=== PATIENT | female | born 1960 | race Caucasian/White ===

== ENCOUNTER 2016-08-10 13:00 | Outpatient (RCR) | payer OTHER ==
--- OUTSIDE RECORDS SUMMARY | 2016-05-14 08:43 | XMS REPORT | Continuity of Care Document ---
Author Author [facility] Organization [facility] Address Unknown Phone Unavailable Care Team Providers Care Drip Pumper Name Role Phone UNKNOWN PCP Unavailable Insurance Providers Payer Name Policy Number Subscriber Name Relationship [facility] [id number] Celina Sandhu Faiban 01 Self Pay Fin Associate Professor Of Medicine Review [id number] Tina Sandhu 18 Self / Same As Patient Advance Directives Directive Response Recorded Date/Time Advance Directives Yes 04/22/16 4:26pm Health Care Power of Tunnel Elastic Operator Zigzag No 04/22/16 4:26pm Resuscitation Status Full Code 04/22/16 4:26pm Chief Complaint and Reason for Visit Chief Complaint REHAB Reason for Visit Diabetic ulcer of both feet associated with type 2 diabetes mellitus Problems Active Problems Medical Problem Onset Date Status Diabetic ulcer of both feet associated with type 2 diabetes mellitus Unknown Acute Medications Current Home Medications Medication Dose Units Route Directions Days/Qty Instructions Start Date Hydrocodone/Acetaminophen 1 Each 1 Ea Oral Every 4HRS as needed for Pain 60 05/07/16 Tramadol Hcl 50 Mg 100 Mg Oral Twice A Day 60 05/07/16 Cyclobenzaprine Hcl 10 Mg 5 Mg Oral Three Times A Day as needed for Muscle Spasms 60 05/08/16 Ferrous Sulfate 325 Mg 325 Mg Oral Daily@0700 100 05/08/16 Atorvastatin Calcium 40 Mg 40 Mg Oral Bedtime 30 05/08/16 Metoprolol Tartrate 50 Mg 50 Mg Oral Twice A Day 60 05/08/16 Spironolactone 25 Mg 25 Mg Oral Daily 30 05/08/16 Acetaminophen 325 Mg 650 Mg Oral Every 6 Hours as needed for Mild Pain 100 05/08/16 Sodium Hypochlorite 473 Ml 5 Ml Topically Twice A Day 1 05/08/16 Magnesium Oxide 400 Mg 400 Mg Oral Three Times A Day 90 05/08/16 Sennosides/Docusate Sodium 1 Each 1 Ea Oral Twice A Day 60 05/08/16 Sucralfate 1 Gm 1 Gm Oral Daily@1600 100 05/08/16 Pantoprazole Sodium 40 Mg 40 Mg Oral Daily@0700 30 05/08/16 Insulin Aspart 100 Unit/1 Ml 21 Unit Subcutaneously With Meals 1 05/08 Insulin Determir 1,000 Units/10 Ml 49 Unit Sub-Q Twice A Day 1 Levothyroxine Sodium 150 Mcg 150 Mcg Oral Daily@0630 1 05/08/16 Miconazole Nitrate 90 Gm 0 Gm Topically Twice A Day as needed for Redness 1 05/08/16 Menthol/Lanolin/Calamine/Znox 71 Gm 0 Gm Topically Twice A Day 1 05/08 Vitamin A & D 60 Gm 0 Gm Topically Twice A Day 1 05/08/16 Vitamin A & D 60 Gm 0 Gm Topically As Directed as needed for Itching And Rash 1 05/08/16 Ascorbic Acid 500 Mg 500 Mg Oral Daily@08 30 05/08/16 Cholecalciferol 5,000 Unit 5,000 Unit Oral Daily 30 05/08/16 Allopurinol 100 Mg 200 Mg Oral Twice Daily After Meals 60 05/08/16 Social History Social History Problem Response Recorded Date/Time Alcohol Use Denies Use 04/22/2016 4:35pm Recreational Drug Use No 04/22/2016 4:35pm Recent Foreign Travel No 04/22/2016 4:54pm Recent Infectious Disease Exposure No 04/22/2016 4:54pm Hospitalization with Isolation Contact 05/09/2016 7:03am Smoking Status Never a Smoker 04/22/2016 4:49pm Recent Hopitalizations Y MRSA OF TOE 04/22/2016 4:35pm Hospitalization with Isolation Contact 05/09/2016 7:03am Query Response Start Date Stop Date Smoking Status Never a Smoker Hospital Discharge Instructions No hospital discharge instructions. Plan of Care Discharge Date 05/09/16 12:30am Disposition 09 ADMITTED INPATIENT Instructions/Education Provided DIABETES CHF Home Safety (GEN) Fall Prevention for Older Adults (GEN) Forms Provided Rehab Team Conference Summary Prescriptions See Medication Section Referrals (Unspecified) - Reason(s) for Referral: CALL DR. 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 [phone] TACOS ESPINOZA DO (Unspecified) - Address: [address] [place], [place] [address]ANGEL MURRAY [id number] Reason(s) for Referral: CALL & MAKE FOLLOW-UP APPT IN OFFICE PER DAUGHTER'S SCHEDULE (Unspecified) - Reason(s) for Referral: PT/OT/RN SERVICES Care Plan and Goals Functional Status Query Response Date Recorded Patient Orientation Person Place May 07, 2016 4:01pm Patient Orientation Person Place Time Situation May 09, 2016 7:02am Comprehension Ability Understands Concepts May 08, 2016 8:00pm Allergies, Adverse Reactions, Alerts No known allergies. Immunizations Name Given Type FLU TRIvalent 5 years - Adult 04/23/16 Administered Vital Signs Acute Vital Signs Vital Response Date/Time Temperature (Fahrenheit) 98.1 degrees F (97.6 - 99.5) 05/08/2016 6:22pm Temperature (Calculated Celsius) 36.90805 degrees C (36.4 - 37.5) 05/08/2016 6:22pm Temperature Source Tympanic 05/08/2016 6:22pm Pulse Rate (adult) 81 bpm (60 - 90) 05/08/2016 6:22pm Respiratory Rate 20 bpm (12 - 24) 05/08/2016 6:22pm O2 Sat by Pulse Oximetry 95 % (88 - 100) 05/08/2016 6:22pm Blood Pressure 126/72 mm Hg 05/08/2016 6:22pm Blood Pressure Mean 90 mm Hg 05/08/2016 6:22pm Pain Numeric Pain Scale 4 05/08/2016 10:10pm Pain Numeric Pain Scale 4 05/08/2016 10:10pm Height (Feet) 6 feet 04/22/2016 4:35pm Height (Inches) 0.00 inches 04/22/2016 4:35pm Height (Calculated Centimeters) 182.388540 cm 04/22/2016 4:35pm Weight (Pounds) 435 pounds 05/08/2016 6:00am Weight (Ounces) 6.8 oz 05/08/2016 6:00am Weight (Calculated Grams) 116341.460 gm 05/08/2016 6:00am Weight (Calculated Kilograms) 197.999416 kilograms 05/08/2016 6:00am Calculated BMI 54.8 04/22/2016 4:35pm Results Laboratory Results Test Name Result Units Flags Reference Collection Date/Time Result Date/ Time Comments White Blood Count 5.3 10^3/uL 4.3-11.0 05/04/2016 5:15am 05/04/2016 6: 23am Red Blood Count 3.17 10^6/uL L 4.35-5.85 05/04/2016 5:1505/04/2016 6: 23am Hemoglobin 9.3 G/DL L 11.5-16.0 05/04/2016 5:1505/04/2016 6:23am Hematocrit 31 % L 35-52 05/04/2016 5:1505/04/2016 6:23am Mean Corpuscular Volume 98 FL 80-99 05/04/2016 5:1505/04/2016 6: 23am Mean Corpuscular Hemoglobin 29 PG 25-34 05/04/2016 5:15am 05/04/2016 6: 23am Mean Corpuscular Hemoglobin Concent 30 G/DL L 32-36 05/04/2016 5:1504/2016 6:23am Red Cell Distribution Width 17.3 % H 10.0-14.5 05/04/2016 5:15am 2015 6:23am Platelet Count 317 10^3/uL 130-400 05/04/2016 5:15am 05/04/2016 6:23am Mean Platelet Volume 10.2 FL 7.4-10.4 05/04/2016 5:15am 05/04/2016 6: 23am Neutrophils (%) (Auto) 64 % 42-75 04/23/2016 5:38am 04/23/2016 6:14am Lymphocytes (%) (Auto) 21 % 12-44 04/23/2016 5:38am 04/23/2016 6:14am Monocytes (%) (Auto) 11 % 0-12 04/23/2016 5:38am 04/23/2016 6:14am Eosinophils (%) (Auto) 3 % 0-10 04/23/2016 5:38am 04/23/2016 6:14am Basophils (%) (Auto) 1 % 0-10 04/23/2016 5:38am 04/23/2016 6:14am Neutrophils # (Auto) 3.6 X 10^3 1.8-7.8 04/23/2016 5:38am 04/23/2016 6: 14am Lymphocytes # (Auto) 1.2 X 10^3 1.0-4.0 04/23/2016 5:3804/23/2016 6: 14am Monocytes # (Auto) 0.6 X 10^3 0.0-1.0 04/23/2016 5:38am 04/23/2016 6: 14am Eosinophils # (Auto) 0.2 10^3/uL 0.0-0.3 04/23/2016 5:3804/23/2016 6 :14am Basophils # (Auto) 0.1 10^3/uL 0.0-0.1 04/23/2016 5:38am 04/23/2016 6: 14am Urine Color YELLOW 05/08/2016 11:20am 05/08/2016 11:39am Urine Clarity CLEAR 05/08/2016 11:20am 05/08/2016 11:39am Urine pH 5 5-9 05/08/2016 11:20am 05/08/2016 11:39am Urine Specific [place] 1.020 1.016-1.022 05/08/2016 11:20am 2015 11:39am Urine Protein 2+ * NEGATIVE 05/08/2016 11:20am 05/08/2016 11:39am Urine Glucose (UA) NEGATIVE NEGATIVE 05/08/2016 11:20am 05/08/2016 11 :39am Urine RBC (Auto) 2+ * NEGATIVE 05/08/2016 11:20am 05/08/2016 11:39am Urine Ketones NEGATIVE NEGATIVE 05/08/2016 11:20am 05/08/2016 11: 39am Urine Nitrite POSITIVE * NEGATIVE 05/08/2016 11:20am 05/08/2016 11: 39am Urine Bilirubin NEGATIVE NEGATIVE 05/08/2016 11:20am 05/08/2016 11: 39am Urine Urobilinogen 1 MG/DL NORMAL 05/08/2016 11:20am 05/08/2016 11: 39am Urine Leukocyte Esterase NEGATIVE NEGATIVE 05/08/2016 11:20am 2015 11:39am Urine RBC 0-2 /HPF 05/08/2016 11:20am 05/08/2016 11:39am Urine WBC 5-10 /HPF * 05/08/2016 11:20am 05/08/2016 11:39am Urine Bacteria TRACE /HPF 05/08/2016 11:20am 05/08/2016 11:39am Urine Squamous Epithelial Cells 25-50 /HPF * 05/08/2016 11:20am 2015 11:39am Urine Crystals NONE /LPF 05/08/2016 11:20am 05/08/2016 11:39am Urine Casts NONE /LPF 05/08/2016 11:20am 05/08/2016 11:39am Urine Mucus NEGATIVE /LPF 05/08/2016 11:20am 05/08/2016 11:39am Urine Culture Indicated NO 05/08/2016 11:20am 05/08/2016 11:39am Sodium Level 137 MMOL/L 135-145 05/04/2016 5:15am 05/04/2016 6:50am Potassium Level 4.5 MMOL/L 3.6-5.0 05/04/2016 5:15am 05/04/2016 6:50am Chloride Level 106 MMOL/L 98-107 05/04/2016 5:15am 05/04/2016 6:50am Carbon Dioxide Level 18 MMOL/L L 21-32 05/04/2016 5:15am 05/04/2016 6: 50am Anion Gap 13 MMOL/L 5-14 05/04/2016 5:15am 05/04/2016 6:50am Blood Urea Nitrogen 12 MG/DL 7-18 05/04/2016 5:15am 05/04/2016 6:50am Creatinine 1.05 MG/DL 0.60-1.30 05/04/2016 5:15am 05/04/2016 6:50am BUN/Creatinine Ratio 11 05/04/2016 5:15am 05/04/2016 6:50am Estimat Glomerular Filtration Rate 54 05/04/2016 5:15am 05/04/2016 6:50am GFR INTERPRETIVE DATA UNITS FOR ESTIMATED GFR (eGFR): mL/min/1.73 M2 REFERENCE RANGE FOR ESTIMATED GFR (eGFR) eGFR NORMAL eGFR >60 MODERATELY DECREASED eGFR 30-59 SEVERLY DECREASED eGFR 15-29 KIDNEY FAILURE <15 (OR DIALYSIS) Glucose Level 257 MG/DL H 70-105 05/04/2016 5:15am 05/04/2016 6:50am Glucometer 234 MG/DL H 70-110 05/08/2016 6:39pm 05/08/2016 6:58pm Calcium Level 9.1 MG/DL 8.5-10.1 05/04/2016 5:15am 05/04/2016 6:50am Total Bilirubin 0.5 MG/DL 0.1-1.0 04/28/2016 5:16am 04/28/2016 6:52am Direct Bilirubin 0.2 MG/DL 0.0-0.3 04/28/2016 5:16am 04/28/2016 6:52am Indirect Bilirubin 0.3 MG/DL 04/28/2016 5:16am 04/28/2016 6:52am Alkaline Phosphatase 57 U/L 40-136 04/28/2016 5:16am 04/28/2016 6:52am Aspartate Amino Transf (AST/SGOT) 25 U/L 5-34 04/28/2016 5:16am 2015 6:52am Alanine Aminotransferase (ALT/SGPT) 41 U/L 0-55 04/28/2016 5:16am 04/28 6:52am Total Protein 6.0 G/DL L 6.4-8.2 04/28/2016 5:16am 04/28/2016 6:52am Albumin 3.0 G/DL L 3.2-4.5 04/28/2016 5:16am 04/28/2016 6:52am Microbiology Results Procedure Source Result Collection Date/Time Result Date/Time Urine Culture Urine, Clean Catch KLEBSIELLA PNEUMONIAE 04/26/2016 8:50pm 7:11am Procedures No known history of procedures. Encounters Encounter Location Arrival/Admit Date Discharge/Depart Date Attending Provider Discharged Inpatient [facility] 04/22/16 4:00pm 12:30am ANASTASIIA BARKER MD Recent Diagnosis Diabetic ulcer of both feet associated with type 2 diabetes mellitus
[~2016-08-10 13:00] MED LIST: ACET325C PO; ACET325T49 PO; AD60O TOP; ALLO100T PO; ALLO300T2 PO; ASCO-262 PO; ASCO500T6 PO; ASPI-983 PO; ATOR40TA PO; ATOR40TA70 PO; CALC-250 PO; CHOL20002 PO; CHOL500050 PO; CIPR500T4 PO; CLOT12CR TP; CYCL10TA9 PO; CYCL5TAB PO; DIGO250T15 PO; DILT180C84 PO; DOCU100C37 PO; FERR-74 PO; FURO80TA3 PO; FURO80TA83 PO; HYDR-3820 PO; HYDR10TA13 PO; INSU100V SQ; INSU100V16 SC; INSU100V5 SQ; INSU100V6 SQ; LACT20SO2 PO; LEVO150T PO; LEVO150T6 PO; LEVO175T2 PO; MAGN400T39 PO; MAGN400T6 PO; MENT71OI TOP; MENT71OI TP; METO50TA2 PO; METO5TAB6 PO; MICO90PO TOP; MINO100C2 PO; OMEP20CA12 PO; PANT40TA3 PO; POLY17PO6 PO; POTA20TA15 PO; SENN-20 PO; SODI473S7 TOP; SODI473S7 TP; SPIR25TA3 PO; SPIR50TA2 PO; SUCR1TAB PO; SUCR1TAB36 PO; TRAM50TA2 PO; VITA-240 PO; WARF-48 PO; [UNRECOGNIZED DRUG - CODE] TP
== END 2016-08-12 | disposition home or self-care (01) ==
LOC: WOUNDCARE 13:00
PROVIDERS: ATTEND Surgery
DX: E11.621 Type 2 diabetes mellitus with foot ulcer (principal); E08.40 Diabetes mellitus due to underlying condition with diabetic neuropathy, unspecified; L97.412 Non-pressure chronic ulcer of right heel and midfoot with fat layer exposed; L97.524 Non-pressure chronic ulcer of other part of left foot with necrosis of bone
CPT/HCPCS: 11042; 11045; 17250; 87070; 87075; 87077; 87186; 87205; 97597; 97598

== ENCOUNTER 2016-10-05 15:00 | Outpatient (RCR) | payer OTHER ==
--- OUTSIDE RECORDS SUMMARY | 2016-08-17 12:46 | XMS REPORT | Continuity of Care Document ---
Author Author [facility] Organization [facility] Address Unknown Phone Unavailable Care Team Providers Care Supervisor Feed House Name Role Phone LUCA WOODY MD PCP Insurance Providers Payer Name Policy Number Subscriber Name Relationship [facility] [id number] Celina Sandhu Fabian 01 Advance Directives Directive Response Recorded Date/Time Advance Directives Yes 06/04/16 4:17am Health Care Power of Outdoor Adventure Instructor Yes 06/04/16 4:17am Organ Donor No 06/04/16 4:17am Resuscitation Status Full Code 06/04/16 4:17am Chief Complaint and Reason for Visit Chief Complaint SYNCOPE; DEHYDRATION; ACUTE ON RENAL FAILURE; UTI Reason for Visit MRSA infection Morbid obesity PAF (paroxysmal atrial fibrillation) Sepsis UTI (urinary tract infection) Problems Active Problems Medical Problem Onset Date Status Acute on chronic renal failure Unknown Acute Cellulitis of both feet Unknown Acute Chronic UTI Unknown Acute Dehydration Unknown Acute Diabetic ulcer of both feet associated with type 2 diabetes mellitus Unknown Acute MRSA infection Unknown Acute Morbid obesity Unknown Acute PAF (paroxysmal atrial fibrillation) Unknown Acute Sepsis Unknown Acute UTI (urinary tract infection) Unknown Acute Medications Current Home Medications Medication Dose Units Route Directions Days/Qty Instructions Start Date Warfarin Sodium 5 Mg 5 Mg Oral Daily 05/22/16 Aspirin 81 Mg 81 Mg Oral Daily 05/22/16 Atorvastatin Calcium 40 Mg 40 Mg Oral Bedtime 05/22/16 Allopurinol 300 Mg 450 Mg Oral Daily TAKES 1 & 1/2 OF A (300 MG) TABLET 05/22/16 Omeprazole 20 Mg 20 Mg Oral Daily 05/22/16 Insulin Glargine,Hum.rec.anlog 100 Unit/1 Ml 190 Units Sub-Q Twice A Day 05/22/16 Insulin Lispro 100 Unit/1 Ml 110 Units Sub-Q Before Meals 05/22/16 Ascorbate Calcium 500 Mg 500 Mg Oral Daily 05/22/16 Ferrous Sulfate 325 Mg 325 Mg Oral Daily 05/22/16 Vitamin E (Dl,Tocopheryl Acet) 400 Unit 800 Oral Daily TAKES 2 (400 MG) CAPSULES 05/22/16 Vitamins A And D 113.4 Gm Topical Daily 05/22/16 Sodium Hypochlorite 473 Ml Topical Twice A Day 05/22/16 Docusate Sodium 100 Mg 100 Mg Oral Twice A Day 05/22/16 Clotrimazole 12 Gm Topical Twice A Day as needed for Yeast 05/22 Menthol/Lanolin/Calamine/Znox 71 Gm Topical Twice A Day as needed for Skin Protectant 05/22/16 Cholecalciferol (Vitamin D3) 2,000 Unit 6,000 Unit Oral Daily TAKES 3 ( 2000 UNIT) CAPSULES 06/04/16 Sucralfate 1 Gm 1 Gm Oral Daily 06/04/16 Polyethylene Glycol 3350 17 Gm 17 Gm Oral Daily as needed for Constipation 06/04/16 Hydrocodone/Acetaminophen 1 Each 1 Tab Oral Every 4HRS as needed for Severe Pain 60 06/08/16 Digoxin 250 Mcg 0.25 Mg Oral Daily 30 Days 06/08/16 Tramadol Hcl 50 Mg 100 Mg Oral Twice A Day 60 TAKES 2 (50 MG) TABLETS Lactulose 20 Gm/30 Ml 10 Gm Oral Three Times A Day 8 06/12/16 Levothyroxine Sodium 175 Mcg 175 Mcg Oral Daily 30 06/12/16 Hydrocortisone 10 Mg 10 Mg Oral Twice A Day 60 Take 1 pill twice daily for 2 weeks then 1 daily for 2 weeks then stop 06/12/16 Insulin Glargine,Hum.rec.anlog 100 Unit/1 Ml 170 Unit Sub-Q Twice A Day 30 Days 06/12/16 Insulin Lispro 100 Unit/1 Ml 90 Unit Sub-Q Twice A Day 30 Days Diltiazem Hcl 180 Mg 180 Mg Oral Daily 30 06/12/16 Past Home Medications Medication Directions Ordered Status Hydrocodone/Acetaminophen 1 Each Tablet, 1 Ea Oral Every 4HRS as needed for Pain 05/07/16 Discontinued Tramadol Hcl 50 Mg Tablet, 100 Mg Oral Twice A Day 05/07/16 Discontinued Cyclobenzaprine Hcl 10 Mg Tablet, 5 Mg Oral Three Times A Day as needed for Muscle Spasms 05/08/16 Discontinued Ferrous Sulfate 325 Mg Tablet, 325 Mg Oral Daily@0700 05/08/16 Discontinued Atorvastatin Calcium 40 Mg Tablet, 40 Mg Oral Bedtime 05/08/16 Discontinued Metoprolol Tartrate 50 Mg Tablet, 50 Mg Oral Twice A Day 05/08/16 Discontinued Spironolactone 25 Mg Tablet, 25 Mg Oral Daily 05/08/16 Discontinued Acetaminophen 325 Mg Tablet, 650 Mg Oral Every 6 Hours as needed for Mild Pain 05/08/16 Discontinued Sodium Hypochlorite 473 Ml Solution, 5 Ml Topically Twice A Day 05/08/16 Discontinued Magnesium Oxide 400 Mg Tablet, 400 Mg Oral Three Times A Day 05/08/16 Discontinued Sennosides/Docusate Sodium 1 Each Tablet, 1 Ea Oral Twice A Day 05/08/16 Discontinued Sucralfate 1 Gm Tablet, 1 Gm Oral Daily@1600 05/08/16 Discontinued Pantoprazole Sodium 40 Mg Tablet.dr, 40 Mg Oral Daily@0700 05/08/16 Discontinued Insulin Aspart 100 Unit/1 Ml Susp, 21 Unit Subcutaneously With Meals Discontinued Insulin Determir 1,000 Units/10 Ml Soln, 49 Unit Sub-Q Twice A Day 05/08/16 Discontinued Levothyroxine Sodium 150 Mcg Tablet, 150 Mcg Oral Daily@0630 05/08/16 Discontinued Miconazole Nitrate 90 Gm Powder, 0 Gm Topically Twice A Day as needed for Redness 05/08/16 Discontinued Menthol/Lanolin/Calamine/Znox 71 Gm Oint, 0 Gm Topically Twice A Day Discontinued Vitamin A & D 60 Gm Oint, 0 Gm Topically Twice A Day 05/08/16 Discontinued Vitamin A & D 60 Gm Oint, 0 Gm Topically As Directed as needed for Itching And Rash 05/08/16 Discontinued Ascorbic Acid 500 Mg Tablet, 500 Mg Oral Daily@08 05/08/16 Discontinued Cholecalciferol 5,000 Unit Capsule, 5000 Unit Oral Daily 05/08/16 Discontinued Allopurinol 100 Mg Tablet, 200 Mg Oral Twice Daily After Meals 05/08/16 Discontinued Acetaminophen 325 Mg Capsule, 325 Mg Oral Every 6 Hours as needed for Pain Discontinued Spironolactone 50 Mg Tablet, 100 Mg Oral Twice A Day 05/22/16 Discontinued Furosemide 80 Mg Tablet, 80 Mg Oral Daily 05/22/16 Discontinued Furosemide 80 Mg Tablet, 80 Mg Oral Daily In The Evening 05/22/16 Discontinued Metolazone 5 Mg Tablet, 5 Mg Oral Daily 05/22/16 Discontinued Cholecalciferol (Vitamin D3) 5,000 Unit Capsule, 5000 Unit Oral Daily Discontinued Cyclobenzaprine Hcl 5 Mg Tablet, 5 Mg Oral Three Times A Day as needed for Muscle Spasms 05/22/16 Discontinued Ciprofloxacin Hcl 500 Mg Tablet, 500 Mg Oral Twice A Day 05/22/16 Discontinued Minocycline Hcl 100 Mg Capsule, 100 Mg Oral Twice A Day 05/22/16 Discontinued Hydrocodone/Acetaminophen 1 Each Tablet, 1 Tab Oral Every 4HRS as needed for Severe Pain 05/22/16 Discontinued Potassium Chloride 20 Meq Tab.er.prt, 20 Meq Oral Three Times A Day 05/22/16 Discontinued Metoprolol Tartrate 50 Mg Tablet, 50 Mg Oral Twice A Day 05/22/16 Discontinued Sucralfate 1 Gm Tablet, 1 Gm Oral Daily 05/22/16 Discontinued Tramadol Hcl 50 Mg Tablet, 100 Mg Oral Twice A Day 05/22/16 Discontinued Magnesium Oxide 400 Mg Tablet, 400 Mg Oral Twice A Day 05/22/16 Discontinued Levothyroxine Sodium 150 Mcg Tablet, 150 Mcg Oral Daily 05/22/16 Discontinued Social History Social History Problem Response Recorded Date/Time Alcohol Use Denies Use 06/04/2016 4:18am Recreational Drug Use No 06/04/2016 4:18am Recent Foreign Travel No 06/04/2016 4:21am Recent Infectious Disease Exposure No 06/04/2016 4:21am Smoking Status Never a Smoker 06/04/2016 4:19am Recent Hopitalizations Y INFECT TOE, UTI/sepsis 06/04/2016 4:18am Query Response Start Date Stop Date Smoking Status Never a Smoker Hospital Discharge Instructions Patient Instructions Physician Instructions Patient Instructions/FollowUp: PCP in [address] Rosa as scheduled Patient Problems: Adrenal insufficiency Morbid obesity Lower leg DM ulcers Recurrent UTI [facility] [place] DISCHARGE ORDERS Height (Feet): 6 Height (Inches): 0.00 Weight (Pounds): 371 Weight (Ounces): 4.0 Reason Pt Homebound morbid obesity orthostasis I Have Seen Pt [id number]: Yes Date of Face to Face: Jun 12, 2016 Discharged To: Home Diagnosis/Conditions HH Order: Med administration Weight loss supervision Glucometer monitoring BP monitoring *I certify that based on my findings, the following services are medically necessary Home Health Services: Services: Nursing Services, Supervising Floorperson-Evaluate & Treat, Physical Therapy-Evaluate & Treat My clinical findings support the need for the above services; see Diagnosis. Dicharge Diet: ADA Diet Daily Activity as Tolerated: Yes New, Converted, or Re-newed RX: RX on Chart I certify that this patient is under my care and that I, a nurse practitioner or a physician; a speech correction assistant working with me, had a face to face encounter that - meets the physician face to face encounter requirements with this patient as dated. Care Plan Patient Instructions:: PCP in 1 weekDr Devora as scheduled Patient Problems: Adrenal insufficiencyMorbid obesityLower leg DM ulcers Recurrent UTI Plan of Care Discharge Date 06/12/16 11:35pm Disposition 09 ADMITTED INPATIENT Instructions/Education Provided Syncope (Fainting) (DC) Prescriptions See Medication Section Referrals Dr. lincoln (Unspecified) - 06/17/16 Reason(s) for Referral: PAF (paroxysmal atrial fibrillation) CALL YOUR MEDICAL NUMERICAL CONTROL OPERATOR TO SCHEDULE A FOLLOW-UP APPOINTMENT FOR NEXT WEEK--IF YOU WANT TO SEE DR LINCOLN INSTEAD THEN CALL HIS OFFICE ON WEDNESDAY FOR A FOLLOW-UP APPOINTMENT MARTA ROSA MD (Unspecified) - Address: [address] [place] [address] Reason(s) for Referral: KEEP ALREADY SCHEDULED APPOINTMENT AT WOUND CARE CLINIC ON WEDNESDAY. LUCA WOODY MD (Unspecified) - 1 Week Address: [address] [place] [id number] Reason(s) for Referral: CALL FOR A FOLLOW-UP APPOINTMENT IN 1 WEEK Additional Instructions/Education PER DR LINCOLN: FOLLOW WITH YOUR PRIMARY CARE PROVIDER ON WEDNESDAY TO FOLLOW UP ON YOUR INR. ONE TIME 7.5 MG DOSE GIVEN ON Wednesday06-12-16. Care Plan and Goals Functional Status Query Response Date Recorded Patient Orientation Person Place Time Situation June 12, 2016 9:46am Patient Orientation Person Place Time Situation June 12, 2016 11:57pm Comprehension Ability Understands Concepts June 10, 2016 9:00am Allergies, Adverse Reactions, Alerts No known allergies. Immunizations No immunization records. Vital Signs Acute Vital Signs Vital Response Date/Time Temperature (Fahrenheit) 98.6 degrees F (97.6 - 99.5) 06/12/2016 11:50pm Temperature (Calculated Celsius) 37.28271 degrees C (36.4 - 37.5) 06/12/2016 8:50pm Temperature Source Temporal 06/12/2016 11:50pm Pulse Rate (adult) 96 bpm (60 - 90) 06/12/2016 11:50pm Respiratory Rate 18 bpm (12 - 24) 06/12/2016 11:50pm O2 Sat by Pulse Oximetry 97 % (88 - 100) 06/12/2016 11:50pm Blood Pressure 133/67 mm Hg 06/12/2016 11:50pm Blood Pressure Mean 89 mm Hg 06/12/2016 8:50pm Pain Numeric Pain Scale 5-Moderate Pain 06/12/2016 11:50pm Height (Feet) 6 feet 06/04/2016 4:21am Height (Inches) 0.00 inches 06/04/2016 4:21am Height (Calculated Centimeters) 182.375677 cm 06/04/2016 4:21am Weight (Pounds) 371 pounds 06/12/2016 6:00am Weight (Ounces) 4.0 oz 06/12/2016 6:00am Weight (Calculated Grams) 291716.169 gm 06/12/2016 6:00am Weight (Calculated Kilograms) 168.034959 kilograms 06/12/2016 6:00am Calculated BMI 48.9 06/04/2016 4:21am Capillary Refill Capillary Refill Less Than 3 Seconds 06/07/2016 9:00pm Results Pending Laboratory Results Test Name Collection Date/Time Microbiology Results Procedure Source Result Collection Date/Time Result Date/Time Anaerobic Culture Tissue, Foot, Left No anaerobes isolated 05/14/2016 10: 11am 05/18/2016 9:56am Wound Culture Tissue, Foot, Left PSEUDOMONAS AERUGINOSA 05/14/2016 10:11am 05/18/2016 9:56am STAPHYLOCOCCUS AUREUS 05/14/2016 10:11am 05/18/2016 9:56am Pending Microbiology Results Procedure Source Collection Date/Time Procedures Procedure Status Date Provider(s) Tracing only of electrocardiogram Completed 05/22/16 EDD CABAN MD Tracing only of electrocardiogram Completed 06/04/16 AISHWARYA KILGORE DO Tracing only of electrocardiogram Completed 06/04/16 SALAZAR,HEIDI STALLWORTH [facility] FAC CCDS Color Doppler echocardiography Active 06/04/16 SALAZAR,HEIDI STALLWORTH [facility] FACC CCDS Tracing only of electrocardiogram Completed 06/05/16 SALAZAR,HEIDI STALLWORTH [facility] FACC CCDS Tracing only of electrocardiogram Completed 06/07/16 [facility],HEIDI STALLWORTH FAC FACC CCDS Tracing only of electrocardiogram Completed 06/09/16 SALAZAR,HEIDI STALLWORTH F[facility] FACC CCDS Encounters Encounter Location Arrival/Admit Date Discharge/Depart Date Attending Provider Discharged Inpatient [facility] 06/04/16 2:40am 11:35pm FLAKO GARCÍA DO Registered Clinic [facility] 06/02/16 5:14pm LUCA WOODY MD Registered Clinic [facility] 05/27/16 7:37pm LUCA WOODY MD Discharged Inpatient [facility] 05/22/16 4:54pm 8:00pm FLAKO GARCÍA DO Registered Clinic [facility] 05/19/16 5:45pm LUCA WOODY MD Registered Recurring [facility] 05/18/16 12:26pm MARTA ROSA MD Recent Diagnosis MRSA infection Morbid obesity PAF (paroxysmal atrial fibrillation) Sepsis UTI (urinary tract infection)
== END 2016-10-05 16:00 | disposition home or self-care (01) ==
LOC: WOUNDCARE 15:00
PROVIDERS: ATTEND Surgery
DX: E11.621 Type 2 diabetes mellitus with foot ulcer (principal); E08.40 Diabetes mellitus due to underlying condition with diabetic neuropathy, unspecified; L97.412 Non-pressure chronic ulcer of right heel and midfoot with fat layer exposed; L97.524 Non-pressure chronic ulcer of other part of left foot with necrosis of bone
CPT/HCPCS: 11042; 29445; 87070; 87075; 87205; 97597; 99212